=== PATIENT | male | born 1990 | race Caucasian/White ===

== ENCOUNTER 2017-08-23 17:33 | Emergency (ER) | payer SELFPAY ==
[~2017-08-23] VITALS: Ht 198.1 cm; Wt 103.0 kg
[2017-08-23 17:51] VITALS: Ht 198.1 cm; Wt 103.0 kg
[2017-08-23 20:35] LABS: BASOPHIL % 0.3 % (0-2); PLATELET COUNT 213 x10^3mcL (130-400); RED CELL DISTRIBUTION WIDTH 13.7 % (11.5-14.5)
[2017-08-23 20:39] LABS: CALCIUM 9.6 mg/dL (8.5-10.1); CHLORIDE SERUM 102 mmol/L (98-107); CREATININE SERUM 1.3 mg/dL (0.7-1.3); GFR1 > 60 mL/min; GLUCOSE SERUM 92 mg/dL (74-106); SODIUM SERUM 140 mmol/L (136-145)
[2017-08-23 20:46] LABS: ALBUMIN 4.5 g/dL (3.4-5.0); ALKALINE PHOSPHATASE 83 U/L (46-116); ALT/SGPT 30 U/L (16-63); AST/SGOT 72 U/L (15-37); BILIRUBIN TOTAL 0.58 mg/dL (0.20-1.00)
[2017-08-23 20:51] LABS: TOTAL PROTEIN, SERUM 8.7 g/dL (6.4-8.2)
[2017-08-23 21:59] VITALS: BP 124/92
== END 2017-08-23 21:59 | disposition home or self-care (01) ==
LOC: ED 17:33
PROVIDERS: Specialist
DX: S62.002A Unspecified fracture of navicular [scaphoid] bone of left wrist, initial encounter for closed fracture (principal); E86.0 Dehydration; R55 Syncope and collapse; W18.39XA Other fall on same level, initial encounter; Y93.89 Activity, other specified; Y92.89 Other specified places as the place of occurrence of the external cause; Y99.8 Other external cause status
CPT/HCPCS: J1885; J7030